=== PATIENT | male | born 1980 | race Hispanic/Latino ===

== ENCOUNTER 2016-07-10 16:20 | Emergency (ER) | payer SELFPAY ==
[~2016-07-10 16:20] MED LIST: AMOXICILLIN500 MG PO; BACTRIM DS1 TAB PO; CEPHALEXIN500 MG PO; MUPIROCIN2 % EX; NAPROSYN500 MG PO; ULTRAM50 M1 PO
== END 2016-07-10 16:30 | disposition left against medical advice (07) | DRG 951 ==
LOC: ED 16:20 → LWOBS 16:30
DX: Z91.19 Patient's noncompliance with other medical treatment and regimen (principal)